=== PATIENT | female | born 1960 | race Caucasian/White ===

== ENCOUNTER 2023-04-24 13:20 | Inpatient (IN) | payer MEDICAID ==
[~2023-04-24] VITALS: Ht 170.2 cm; Wt 100.2 kg
[2023-04-24] MEDS ORDERED: ONDANSETRON HCL/PF - ER 4 MG/2 ML VIAL IV ONE (14:00)
[2023-04-24] MEDS ORDERED: KETOROLAC TROMETHAMINE INJ 30 MG/ML VIAL IV ONE (14:00)
[2023-04-24] MEDS ORDERED: IV NS 0.9% 1,000 ML IV ONE (14:00)
[2023-04-24 14:10] LABS: BASOPHILS # (AUTO) 0.1 K/uL (0.0-0.2); BASOPHILS % (AUTO) 1.3 % (0.0-2.0); EOSINOPHILS # (AUTO) 0.3 K/uL (0.0-0.7); EOSINOPHILS % (AUTO) 5.5 % (0.0-6.0); HEMATOCRIT 44 % (33-45); HEMOGLOBIN 14.2 g/dL (11.5-14.8); LYMPHOCYTES # (AUTO) 1.8 K/uL (0.8-4.8); MEAN CORPUSCULAR HEMOGLOBIN 29 PG (26.0-33.0); MEAN CORPUSCULAR HGB CONC 33 g/dl (31.0-36.0); MEAN CORPUSCULAR VOLUME 88 fL (82-100); MONOCYTES # (AUTO) 0.6 K/uL (0.1-1.30); MONOCYTES % (AUTO) 11.8 % (2.0-12.0); NEUTROPHILS # (AUTO) 2.3 K/uL (1.8-8.9); NEUTROPHILS % (AUTO) 45.4 % (43.0-81.0); PLATELET COUNT (AUTO) 211 K/uL (150-450); RED BLOOD CELL COUNT(AUTO) 4.97 MIL/uL (4.0-5.2); RED CELL DISTRIBUTION WIDTH 15.9 % (11.5-15.0)
[2023-04-24 14:24] LABS: ALBUMIN 3.1 g/dL (3.4-5.0); BILIRUBIN,DIRECT 0.1 mg/dL (0.0-0.2); BILIRUBIN,TOTAL 0.3 mg/dL (0.2-1.0); CREATININE 1.8 mg/dL (0.6-1.3); POTASSIUM 4.6 mmol/L (3.5-5.1); TOTAL PROTEIN, SERUM 7.2 g/dL (6.4-8.2)
[2023-04-24] MEDS ORDERED: KETOROLAC TROMETHAMINE 15 MG/ML VIAL ONE (14:29)
[2023-04-24] MEDS ORDERED: ONDANSETRON HCL/PF 4 MG/2 ML VIAL ONE (14:29)
[2023-04-24] MEDS ORDERED: MORPHINE SULFATE INJ 2 MG/ML DISP.SYRIN IV ONE (15:00)
[2023-04-24 15:04] LABS: APPEARANCE,URINE CLEAR (CLEAR); BILIRUBIN,URINE NEGATIVE (NEGATIVE); BLOOD, URINE NEGATIVE Ery/uL (NEGATIVE); COLOR,URINE YELLOW (YELLOW); KETONES,URINE TRACE mg/dL (NEGATIVE); LEUKOCYTE ESTERASE ,URINE NEGATIVE (NEGATIVE); NITRITE, URINE NEGATIVE (NEGATIVE); PROTEIN,URINE NEGATIVE (NEGATIVE); UGLUCOSE 3+ mg/dL (NEGATIVE); UROBILINOGEN,URINE 0.2 EU/dL (0.2)
[2023-04-24 15:15] LABS: RBC,URINE 0-2 /HPF (0-2); WBC,URINE 0-2 /HPF (0-3)
[2023-04-24 15:16] LABS: ADD URINE CULTURE NO; BACTERIA,URINE None seen /HPF (None Seen)
[2023-04-24] MEDS ORDERED: MORPHINE SULFATE INJ 4 MG/ML DISP.SYRIN ONE (15:25)
[2023-04-24] MEDS ORDERED: IV 1/2NS 1000 ML 1,000 ML IV PRN (16:30)
[2023-04-24] MEDS ORDERED: TAMSULOSIN 0.4 MG CAP.SR.24H PO SCH (16:30)
[2023-04-24] MEDS ORDERED: TAMSULOSIN 0.4 MG CAP.SR.24H PO ONE ×2 (16:30→19:30)
[2023-04-24] MEDS ORDERED: ZOLPIDEM TARTRATE 5 MG TABLET PO PRN (16:30)
[2023-04-24] MEDS ORDERED: HYDROCODONE/APAP 5/325MG TABLET PO PRN (16:30)
[2023-04-24] MEDS ORDERED: ACETAMINOPHEN 325 MG TABLET PO PRN (16:30)
[2023-04-24] MEDS ORDERED: DEXTROSE 50%-WATER 50 ML DISP.SYRIN IV PRN (16:30)
[2023-04-24] MEDS ORDERED: HYDROMORPHONE 1 MG/1 ML DISP.SYRIN IV ONE (17:30)
[2023-04-24] MEDS ORDERED: HYDROMORPHONE 1 MG/1 ML DISP.SYRIN ONE (17:51)
[2023-04-24] MEDS: BLOOD SUGAR DIAGNOSTIC 1 EACH STRIP IN SCH ×2 (19:38→21:38)
[2023-04-24 20:00] VITALS: BP 132/86; TEMP 98.2; O2SAT 93
[2023-04-24] MEDS: MORPHINE SULFATE INJ 2 MG/ML DISP.SYRIN IV PRN (20:47)
[2023-04-24 21:00] VITALS: O2SAT 98
[2023-04-24] MEDS: INSULIN REGULAR, HUMAN 100 UNIT/ML 3 ML VIAL SQ PRN (21:38)
[2023-04-24] MEDS: HYDROCODONE/APAP 10/325MG TABLET PO PRN (23:17)
[2023-04-25] MEDS: MORPHINE SULFATE INJ 2 MG/ML DISP.SYRIN IV PRN ×3 (06:15→16:38)
[2023-04-25] MEDS: INSULIN REGULAR, HUMAN 100 UNIT/ML 3 ML VIAL SQ PRN ×3 (06:35→21:42)
[2023-04-25] MEDS: BLOOD SUGAR DIAGNOSTIC 1 EACH STRIP IN SCH ×4 (06:35→21:41)
[2023-04-25 06:48] LABS: BASOPHILS # (AUTO) 0.1 K/uL (0.0-0.2); BASOPHILS % (AUTO) 1.1 % (0.0-2.0); EOSINOPHILS # (AUTO) 0.4 K/uL (0.0-0.7); EOSINOPHILS % (AUTO) 7.4 % (0.0-6.0); HEMATOCRIT 40 % (33-45); LYMPHOCYTES # (AUTO) 1.7 K/uL (0.8-4.8); LYMPHOCYTES % (AUTO) 35.4 % (20.0-44.0); MEAN CORPUSCULAR HEMOGLOBIN 29 PG (26.0-33.0); MEAN CORPUSCULAR HGB CONC 32 g/dl (31.0-36.0); MEAN CORPUSCULAR VOLUME 88 fL (82-100); MONOCYTES # (AUTO) 0.5 K/uL (0.1-1.30); MONOCYTES % (AUTO) 10.5 % (2.0-12.0); NEUTROPHILS # (AUTO) 2.2 K/uL (1.8-8.9); NEUTROPHILS % (AUTO) 45.6 % (43.0-81.0); PLATELET COUNT (AUTO) 188 K/uL (150-450); RED BLOOD CELL COUNT(AUTO) 4.58 MIL/uL (4.0-5.2); RED CELL DISTRIBUTION WIDTH 15.8 % (11.5-15.0); WHITE BLOOD COUNT (AUTO) 4.8 K/uL (4.3-11.0)
[2023-04-25 07:16] LABS: CALCIUM, SERUM 8.7 mg/dL (8.5-10.1); CREATININE 1.1 mg/dL (0.6-1.3); MAGNESIUM 2.1 mg/dL (1.8-2.4); PHOSPHORUS 3.8 mg/dL (2.5-4.9); POTASSIUM 4.4 mmol/L (3.5-5.1)
[2023-04-25 08:00] VITALS: BP 100/69; TEMP 98.2; O2SAT 97
[2023-04-25] MEDS: HYDROCODONE/APAP 10/325MG TABLET PO PRN ×2 (08:35→20:12)
[2023-04-25] MEDS: IV 1/2NS 1000 ML 1,000 ML IV SCH ×2 (09:26→19:30)
[2023-04-25] MEDS: NEOMY SULF/BACITRAC ZN/POLY 15 GM TUBE TP SCH (10:15)
[2023-04-25] MEDS ORDERED: AMLO10TA4 PO (14:53)
[2023-04-25] MEDS ORDERED: SACU1TAB PO (14:53)
[2023-04-25] MEDS ORDERED: CLOP75TA15 PO (14:53)
[2023-04-25] MEDS ORDERED: TAMS-12 PO (14:53)
[2023-04-25] MEDS ORDERED: EMPA10TA PO (14:53)
[2023-04-25] MEDS ORDERED: HYDR-4303 PO (14:53)
[2023-04-25] MEDS ORDERED: SPIR25TA PO (14:53)
[2023-04-25] MEDS ORDERED: GABA300C PO (14:53)
[2023-04-25] MEDS ORDERED: ATOR80TA PO (14:53)
[2023-04-25] MEDS ORDERED: ONDA4TAB5 PO (14:53)
[2023-04-25] MEDS ORDERED: DIPH25TA23 PO (14:53)
[2023-04-25] MEDS ORDERED: CEFP200T14 PO (14:53)
[2023-04-25] MEDS ORDERED: NITR0.4T48 SL (14:53)
[2023-04-25] MEDS ORDERED: HYDR-500 PO (14:53)
[2023-04-25 16:00] VITALS: BP 132/87; TEMP 99; O2SAT 97
[2023-04-25] MEDS: ENOXAPARIN SODIUM 40 MG/0.4 ML DISP.SYRIN SQ SCH (16:41)
[2023-04-25 20:00] VITALS: BP 143/96; TEMP 97.7; O2SAT 96
[2023-04-25 21:24] VITALS: BP 143/93; TEMP 97.7; O2SAT 96
[2023-04-25] MEDS: TAMSULOSIN 0.4 MG CAP.SR.24H PO SCH (21:36)
[2023-04-26] MEDS: IV 1/2NS 1000 ML 1,000 ML IV SCH ×2 (03:48→14:12)
[2023-04-26] MEDS: INSULIN REGULAR, HUMAN 100 UNIT/ML 3 ML VIAL SQ PRN ×4 (06:40→21:26)
[2023-04-26] MEDS: BLOOD SUGAR DIAGNOSTIC 1 EACH STRIP IN SCH ×4 (06:40→21:26)
[2023-04-26 07:07] LABS: HEPATITIS B CORE AB, IgM Negative (Negative); HEPATITIS B CORE AB, TOTAL Negative (Negative); HEPATITIS B SURFACE AB Non Reactive (.); HEPATITIS Be AG Negative (Negative)
[2023-04-26 08:00] VITALS: BP 139/82; TEMP 97.9; O2SAT 97
[2023-04-26] MEDS: NEOMY SULF/BACITRAC ZN/POLY 15 GM TUBE TP SCH (08:37)
[2023-04-26] MEDS: MORPHINE SULFATE INJ 2 MG/ML DISP.SYRIN IV PRN ×3 (08:44→17:54)
[2023-04-26] MEDS ORDERED: HYDROCODONE/APAP 5/325MG TABLET PO PRN (12:00)
[2023-04-26] MEDS: SACUBITRIL/VALSARTAN 1 EACH TABLET PO SCH (16:39)
[2023-04-26] MEDS: ENOXAPARIN SODIUM 40 MG/0.4 ML DISP.SYRIN SQ SCH (16:46)
[2023-04-26] MEDS: HYDROCODONE/APAP 10/325MG TABLET PO PRN (16:50)
[2023-04-26 16:58] VITALS: BP 138/89; TEMP 98.4; O2SAT 99
[2023-04-26] MEDS: ONDANSETRON HCL/PF 4 MG/2 ML VIAL IVP PRN (18:01)
[2023-04-26 20:00] VITALS: BP 121/72; TEMP 98.4; O2SAT 99
[2023-04-26] MEDS: TAMSULOSIN 0.4 MG CAP.SR.24H PO SCH (21:18)
[2023-04-26] MEDS ORDERED: GABAPENTIN 300 MG CAPSULE PO SCH (22:00)
[2023-04-26] MEDS ORDERED: ATORVASTATIN 40 MG TABLET PO SCH (22:00)
[2023-04-27] MEDS: IV 1/2NS 1000 ML 1,000 ML IV SCH ×2 (00:48→10:30)
[2023-04-27] MEDS: MORPHINE SULFATE INJ 2 MG/ML DISP.SYRIN IV PRN ×3 (03:34→16:14)
[2023-04-27] MEDS: BLOOD SUGAR DIAGNOSTIC 1 EACH STRIP IN SCH ×2 (06:55→12:19)
[2023-04-27] MEDS: INSULIN REGULAR, HUMAN 100 UNIT/ML 3 ML VIAL SQ PRN (06:57)
[2023-04-27 08:00] VITALS: BP 108/71; TEMP 97.7; O2SAT 96
[2023-04-27] MEDS: NEOMY SULF/BACITRAC ZN/POLY 15 GM TUBE TP SCH (08:44)
[2023-04-27] MEDS: SACUBITRIL/VALSARTAN 1 EACH TABLET PO SCH (08:44)
[2023-04-27 08:45] VITALS: BP 108/71
[2023-04-27] MEDS ORDERED: SPIRONOLACTONE 25 MG TABLET PO SCH (09:00)
[2023-04-27] MEDS ORDERED: CLOPIDOGREL BISULFATE 75 MG TABLET PO SCH (09:00)
[2023-04-27] MEDS ORDERED: AMLODIPINE BESYLATE 10 MG TABLET PO SCH (09:00)
[2023-04-27] MEDS ORDERED: TAMSULOSIN 0.4 MG CAP.SR.24H PO SCH (09:00)
[2023-04-27] MEDS ORDERED: HYDR-3972 PO (10:10)
[2023-04-27] MEDS ORDERED: PREG75CA PO (10:10)
[2023-04-27] MEDS ORDERED: PREGABALIN 25 MG CAPSULE PO SCH (10:30)
[2023-04-27] MEDS: ONDANSETRON HCL/PF 4 MG/2 ML VIAL IVP PRN (10:35)
[2023-04-27 13:07] LABS: HEPATITIS Be AB Negative (Negative)
[2023-04-27] MEDS: HYDROCODONE/APAP 10/325MG TABLET PO PRN (14:24)
[2023-04-27] MEDS ORDERED: HOME MED (JARDIANCE 10MG) PO SCH (21:00)
== END 2023-04-27 16:25 | disposition home or self-care (01) | DRG 465 ==
LOC: ER 13:24 → MED 17:31
PROVIDERS: ATTEND Nurse Practitioner Acute Care
DX: N20.2 Calculus of kidney with calculus of ureter (principal); N17.0 Acute kidney failure with tubular necrosis; I50.9 Heart failure, unspecified; I13.0 Hypertensive heart and chronic kidney disease with heart failure and stage 1 through stage 4 chronic kidney disease, or unspecified chronic kidney disease; E11.22 Type 2 diabetes mellitus with diabetic chronic kidney disease; N18.9 Chronic kidney disease, unspecified; K57.90 Diverticulosis of intestine, part unspecified, without perforation or abscess without bleeding; M48.54XA Collapsed vertebra, not elsewhere classified, thoracic region, initial encounter for fracture; I69.354 Hemiplegia and hemiparesis following cerebral infarction affecting left non-dominant side; Z87.442 Personal history of urinary calculi; Z88.0 Allergy status to penicillin; Z90.710 Acquired absence of both cervix and uterus; E78.5 Hyperlipidemia, unspecified; Z98.890 Other specified postprocedural states; Z98.891 History of uterine scar from previous surgery; N13.9 Obstructive and reflux uropathy, unspecified; G89.4 Chronic pain syndrome
CPT/HCPCS: 36415; 80048-TC; 80076-TC; 81001; 82962-TC; 83605-TC; 83690-TC; 83735-TC; 84100-TC; 85025-TC; 86704; 86705; 86706; 86707; 86803; 87340; 87350; 97110-TC; 97116-TC; 97530-TC; A4223; G0378; J1170; J1650; J1815; J1885; J2270; J2405; J3490

== ENCOUNTER → 2023-09-18 | Emergency (ER) | payer MEDICAID ==
[~2023-09-18] VITALS: Ht 165.1 cm; Wt 87.5 kg
[~2023-09-18] MED LIST: AMLO10TA4 PO; ASPIRIN 325 MG TABLET ONE; ASPIRIN 325 MG TABLET PO ONE; ATOR80TA PO; CLOP75TA15 PO; DIPH25TA23 PO; EMPA10TA PO; GABA300C PO; HYDR-3972 PO; HYDR-4303 PO; HYDR-500 PO; HYDROCODONE/APAP 5/325MG TABLET ONE; HYDROCODONE/APAP 5/325MG TABLET PO ONE; MORPHINE SULFATE INJ 2 MG/ML DISP.SYRIN IV ONE; MORPHINE SULFATE INJ 2 MG/ML DISP.SYRIN ONE; NITR0.4T48 SL; ONDA4TAB5 PO; ONDANSETRON HCL/PF 4 MG/2 ML VIAL IV ONE; ONDANSETRON HCL/PF 4 MG/2 ML VIAL ONE; PREG75CA PO; SACU1TAB PO; SPIR25TA PO; TAMS-12 PO
[2023-09-18 21:49] LABS: BASOPHILS # (AUTO) 0.1 K/uL (0.0-0.2); BASOPHILS % (AUTO) 1.2 % (0.0-2.0); EOSINOPHILS # (AUTO) 0.5 K/uL (0.0-0.7); EOSINOPHILS % (AUTO) 8.5 % (0.0-6.0); HEMATOCRIT 45 % (33-45); HEMOGLOBIN 14.6 g/dL (11.5-14.8); LYMPHOCYTES # (AUTO) 2.2 K/uL (0.8-4.8); LYMPHOCYTES % (AUTO) 35.8 % (20.0-44.0); MEAN CORPUSCULAR HEMOGLOBIN 28 PG (26.0-33.0); MEAN CORPUSCULAR HGB CONC 33 g/dl (31.0-36.0); MEAN CORPUSCULAR VOLUME 86 fL (82-100); MONOCYTES # (AUTO) 0.6 K/uL (0.1-1.30); MONOCYTES % (AUTO) 9.1 % (2.0-12.0); NEUTROPHILS # (AUTO) 2.9 K/uL (1.8-8.9); NEUTROPHILS % (AUTO) 45.4 % (43.0-81.0); PLATELET COUNT (AUTO) 201 K/uL (150-450); RED BLOOD CELL COUNT(AUTO) 5.15 MIL/uL (4.0-5.2); RED CELL DISTRIBUTION WIDTH 14.7 % (11.5-15.0); WHITE BLOOD COUNT (AUTO) 6.3 K/uL (4.3-11.0)
[2023-09-18 22:05] LABS: CALCIUM, SERUM 9.1 mg/dL (8.5-10.1); CARBON DIOXIDE 26 mmol/L (21-32); CHLORIDE 102 mmol/L (98-107); CREATININE 1.4 mg/dL (0.6-1.3); GLUCOSE 134 mg/dL (74-106); POTASSIUM 4.3 mmol/L (3.5-5.1); SODIUM SERUM 137 mmol/L (136-145); UREA NITROGEN, BLOOD 30 mg/dL (7-18)
[2023-09-18 22:10] LABS: ALANINE AMINOTRANSFERASE 30 U/L (12-78); ALBUMIN 3.5 g/dL (3.4-5.0); ALKALINE PHOSPHATASE 127 U/L (46-116); ASPARTATE AMINOTRANSFERASE 29 U/L (15-37); BILIRUBIN,DIRECT 0.1 mg/dL (0.0-0.2); BILIRUBIN,TOTAL 0.3 mg/dL (0.2-1.0); TOTAL PROTEIN, SERUM 8.3 g/dL (6.4-8.2)
[2023-09-18 22:47] LABS: LIPASE 31 U/L (16-77); NT-PRO BNP 766 pg/mL (0-125)
[2023-09-19 07:40] VITALS: BP 128/79; TEMP 98.2; O2SAT 98
== END | disposition short-term general hospital (02) ==
LOC: ER 20:38
DX: I11.0 Hypertensive heart disease with heart failure (principal); I50.9 Heart failure, unspecified; R79.89 Other specified abnormal findings of blood chemistry; E11.9 Type 2 diabetes mellitus without complications; K21.9 Gastro-esophageal reflux disease without esophagitis; Z88.0 Allergy status to penicillin; Z60.2 Problems related to living alone; Z79.899 Other long term (current) drug therapy
CPT/HCPCS: 99285; 96374; 71045; 96375; 93005; 85025; 80048; 83690; 80076; 85378; 36415; 84484; 83880; J2405; J2270

== ENCOUNTER 2023-11-28 16:35 | Emergency (ER) | payer MEDICAID ==
[~2023-11-28] VITALS: Ht 165.1 cm; Wt 88.0 kg
[~2023-11-28 16:35] MED LIST changes: -ASPIRIN 325 MG TABLET ONE; -ASPIRIN 325 MG TABLET PO ONE; -HYDROCODONE/APAP 5/325MG TABLET ONE; -HYDROCODONE/APAP 5/325MG TABLET PO ONE; -MORPHINE SULFATE INJ 2 MG/ML DISP.SYRIN IV ONE; -MORPHINE SULFATE INJ 2 MG/ML DISP.SYRIN ONE; -ONDANSETRON HCL/PF 4 MG/2 ML VIAL IV ONE; -ONDANSETRON HCL/PF 4 MG/2 ML VIAL ONE
[2023-11-28 16:50] VITALS: TEMP 98.5
[2023-11-28] MEDS ORDERED: ONDANSETRON HCL/PF 4 MG/2 ML VIAL IVP ONE (17:30)
[2023-11-28] MEDS ORDERED: MORPHINE SULFATE INJ 2 MG/ML DISP.SYRIN IV ONE (17:30)
[2023-11-28 17:43] LABS: APPEARANCE,URINE Clear (CLEAR); BILIRUBIN,URINE Negative (NEGATIVE); BLOOD, URINE Negative Ery/uL (NEGATIVE); COLOR,URINE YELLOW (YELLOW); KETONES,URINE Negative (NEGATIVE); LEUKOCYTE ESTERASE ,URINE Negative (NEGATIVE); NITRITE, URINE Negative (NEGATIVE); PH,URINE 5.5 (5.0-8.0); PROTEIN,URINE Negative (NEGATIVE); UGLUCOSE Negative (NEGATIVE); UROBILINOGEN,URINE 0.2 EU/dL (0.2)
[2023-11-28 18:21] LABS: BASOPHILS # (AUTO) 0.1 K/uL (0.0-0.2); BASOPHILS % (AUTO) 1.1 % (0.0-2.0); EOSINOPHILS # (AUTO) 0.5 K/uL (0.0-0.7); EOSINOPHILS % (AUTO) 8.1 % (0.0-6.0); HEMATOCRIT 40 % (33-45); HEMOGLOBIN 13.1 g/dL (11.5-14.8); LYMPHOCYTES # (AUTO) 2.2 K/uL (0.8-4.8); LYMPHOCYTES % (AUTO) 34.2 % (20.0-44.0); MEAN CORPUSCULAR HEMOGLOBIN 28 PG (26.0-33.0); MEAN CORPUSCULAR HGB CONC 32 g/dl (31.0-36.0); MEAN CORPUSCULAR VOLUME 88 fL (82-100); MONOCYTES # (AUTO) 0.6 K/uL (0.1-1.30); MONOCYTES % (AUTO) 8.8 % (2.0-12.0); NEUTROPHILS # (AUTO) 3.1 K/uL (1.8-8.9); NEUTROPHILS % (AUTO) 47.8 % (43.0-81.0); PLATELET COUNT (AUTO) 213 K/uL (150-450); RED CELL DISTRIBUTION WIDTH 15.5 % (11.5-15.0); WHITE BLOOD COUNT (AUTO) 6.4 K/uL (4.3-11.0)
[2023-11-28] MEDS ORDERED: ONDANSETRON 4 MG TAB.RAPDIS ONE (18:28)
[2023-11-28] MEDS ORDERED: MORPHINE SULFATE INJ 2 MG/ML DISP.SYRIN ONE (18:28)
[2023-11-28] MEDS: MORPHINE SULFATE INJ 2 MG/ML DISP.SYRIN IM ONE (18:31)
[2023-11-28] MEDS: ONDANSETRON 4 MG TAB.RAPDIS PO ONE (18:32)
[2023-11-28 18:42] LABS: CALCIUM, SERUM 9.1 mg/dL (8.5-10.1); CREATININE 0.9 mg/dL (0.6-1.3); POTASSIUM 4.1 mmol/L (3.5-5.1)
[2023-11-28 18:47] LABS: INR 0.98 (0.91-1.10); PARTIAL THROMBOPLASTIN TIME 25.6 SEC (24.3-34.3); PROTHROMBIN TIME 10.4 SECS (9.2-11.1)
[2023-11-28 18:49] LABS: ALBUMIN 2.9 g/dL (3.4-5.0); BILIRUBIN,DIRECT 0.1 mg/dL (0.0-0.2); BILIRUBIN,TOTAL 0.4 mg/dL (0.2-1.0); TOTAL PROTEIN, SERUM 6.9 g/dL (6.4-8.2)
[2023-11-28] MEDS ORDERED: ONDA4TAB5 PO (19:12)
[2023-11-28] MEDS ORDERED: ACET-2605 PO (19:12)
[2023-11-28 19:25] VITALS: BP 145/98; O2SAT 99
== END 2023-11-28 19:26 | disposition home or self-care (01) ==
LOC: ER 17:01
DX: R10.31 Right lower quadrant pain (principal); R11.0 Nausea; I10 Essential (primary) hypertension; E11.9 Type 2 diabetes mellitus without complications; K21.9 Gastro-esophageal reflux disease without esophagitis; Z88.0 Allergy status to penicillin; R39.15 Urgency of urination; R35.0 Frequency of micturition
CPT/HCPCS: 99285; 74176; 96372; 85025; 80048; 83690; 80076; 81003; 36415; 85730; Q0162; J2270

== ENCOUNTER 2024-03-11 19:00 | Inpatient (IN) | payer MEDICAID ==
[~2024-03-11] VITALS: Ht 165.1 cm; Wt 116.6 kg
[~2024-03-11 19:00] MED LIST changes: +ACET-2605 PO
[2024-03-11 19:18] LABS: BASOPHILS # (AUTO) 0.1 K/uL (0.0-0.2); EOSINOPHILS # (AUTO) 0.4 K/uL (0.0-0.7); EOSINOPHILS % (AUTO) 6.1 % (0.0-6.0); HEMATOCRIT 42 % (33-45); HEMOGLOBIN 14.1 g/dL (11.5-14.8); LYMPHOCYTES # (AUTO) 2.2 K/uL (0.8-4.8); MEAN CORPUSCULAR HEMOGLOBIN 29 PG (26.0-33.0); MEAN CORPUSCULAR HGB CONC 34 g/dl (31.0-36.0); MEAN CORPUSCULAR VOLUME 86 fL (82-100); MONOCYTES # (AUTO) 0.6 K/uL (0.1-1.30); MONOCYTES % (AUTO) 8.5 % (2.0-12.0); NEUTROPHILS % (AUTO) 54.4 % (43.0-81.0); PLATELET COUNT (AUTO) 227 K/uL (150-450); RED BLOOD CELL COUNT(AUTO) 4.88 MIL/uL (4.0-5.2); RED CELL DISTRIBUTION WIDTH 14.8 % (11.5-15.0); WHITE BLOOD COUNT (AUTO) 7.4 K/uL (4.3-11.0)
[2024-03-11] MEDS ORDERED: hydrALAZINE HCL IV 20 MG VIAL ONE (19:22)
[2024-03-11] MEDS: hydrALAZINE HCL IV 20 MG VIAL IV ONE (19:24)
[2024-03-11 19:29] LABS: CARBON DIOXIDE 27 mmol/L (21-32); CHLORIDE 105 mmol/L (98-107); CREATININE 0.8 mg/dL (0.6-1.3); GLUCOSE 126 mg/dL (74-106); POTASSIUM 3.7 mmol/L (3.5-5.1); SODIUM SERUM 142 mmol/L (136-145); UREA NITROGEN, BLOOD 17 mg/dL (7-18)
[2024-03-11 19:37] LABS: LACTIC ACID 1.4 mmol/L (0.4-2.0)
[2024-03-11 19:43] LABS: ALANINE AMINOTRANSFERASE 23 U/L (12-78); ALBUMIN 2.9 g/dL (3.4-5.0); ALKALINE PHOSPHATASE 126 U/L (46-116); ASPARTATE AMINOTRANSFERASE 19 U/L (15-37); BILIRUBIN,DIRECT 0.1 mg/dL (0.0-0.2); BILIRUBIN,TOTAL 0.3 mg/dL (0.2-1.0); NT-PRO BNP 2241 pg/mL (0-125); TOTAL PROTEIN, SERUM 7.6 g/dL (6.4-8.2)
[2024-03-11] MEDS: ACETAMINOPHEN ES 500 MG TABLET PO ONE (21:30)
[2024-03-11] MEDS ORDERED: ACETAMINOPHEN ES 500 MG TABLET ONE (21:33)
[2024-03-11] MEDS: ACETAMINOPHEN ES 500 MG TABLET PO PRN (21:41)
[2024-03-11 22:08] LABS: APPEARANCE,URINE SLIGHTLY CLOUDY (CLEAR); BILIRUBIN,URINE NEGATIVE (NEGATIVE); BLOOD, URINE NEGATIVE Ery/uL (NEGATIVE); COLOR,URINE YELLOW (YELLOW); KETONES,URINE TRACE mg/dL (NEGATIVE); LEUKOCYTE ESTERASE ,URINE NEGATIVE (NEGATIVE); NITRITE, URINE POSITIVE (NEGATIVE); PROTEIN,URINE NEGATIVE (NEGATIVE); UGLUCOSE NEGATIVE (NEGATIVE); UROBILINOGEN,URINE 0.2 EU/dL (0.2)
[2024-03-11 22:17] LABS: ADD URINE CULTURE YES; BACTERIA,URINE 3+ /HPF (None Seen); RBC,URINE 0-2 /HPF (0-2)
[2024-03-11 22:20] VITALS: BP 151/93; TEMP 97.9; O2SAT 96
[2024-03-11] MEDS ORDERED: MAGNESIUM HYDROXIDE 30 ML UDC PO PRN (22:30)
[2024-03-11] MEDS ORDERED: MAG HYDROX/AL HYDROX/SIMETH 30 ML UDC PO PRN (22:30)
[2024-03-11] MEDS ORDERED: Z GUARD REMEDY 4 OZ OINT TP PRN (22:30)
[2024-03-11] MEDS ORDERED: LEVOFLOXACIN 500 MG /D5W 100ML 100 ML IV ONE (23:16)
[2024-03-11] MEDS: ENOXAPARIN SODIUM 40 MG/0.4 ML DISP.SYRIN SQ SCH (23:30)
[2024-03-11] MEDS: LEVOFLOXACIN 250 MG /D5W 50 ML 250 MG in PREMIX 1 EA IV SCH (23:32)
[2024-03-12] VITALS: BP 159/106; TEMP 97.8; O2SAT 98
[2024-03-12] MEDS: IBUPROFEN 400 MG TABLET PO PRN (00:17)
[2024-03-12] MEDS: NITROGLYCERIN 0.4 MG/TAB BOTTLE SL PRN (03:59)
[2024-03-12 04:00] VITALS: BP 150/80; TEMP 98.1; O2SAT 96
[2024-03-12] MEDS: MORPHINE SULFATE INJ 2 MG/ML DISP.SYRIN IV ONE (05:38)
[2024-03-12 07:23] LABS: BASOPHILS # (AUTO) 0.1 K/uL (0.0-0.2); EOSINOPHILS # (AUTO) 0.5 K/uL (0.0-0.7); EOSINOPHILS % (AUTO) 7.7 % (0.0-6.0); HEMATOCRIT 38 % (33-45); HEMOGLOBIN 12.8 g/dL (11.5-14.8); LYMPHOCYTES # (AUTO) 2.1 K/uL (0.8-4.8); LYMPHOCYTES % (AUTO) 35.3 % (20.0-44.0); MEAN CORPUSCULAR HEMOGLOBIN 29 PG (26.0-33.0); MEAN CORPUSCULAR HGB CONC 34 g/dl (31.0-36.0); MEAN CORPUSCULAR VOLUME 85 fL (82-100); MONOCYTES # (AUTO) 0.6 K/uL (0.1-1.30); MONOCYTES % (AUTO) 9.9 % (2.0-12.0); NEUTROPHILS # (AUTO) 2.8 K/uL (1.8-8.9); NEUTROPHILS % (AUTO) 46.1 % (43.0-81.0); PLATELET COUNT (AUTO) 219 K/uL (150-450); RED BLOOD CELL COUNT(AUTO) 4.43 MIL/uL (4.0-5.2); RED CELL DISTRIBUTION WIDTH 14.8 % (11.5-15.0)
[2024-03-12] MEDS: PANTOPRAZOLE 40 MG TABLET.DR PO SCH (07:39)
[2024-03-12 07:50] VITALS: O2SAT 97
[2024-03-12 08:00] VITALS: BP 154/97; TEMP 97.7; O2SAT 98
[2024-03-12 08:25] LABS: ALBUMIN 2.6 g/dL (3.4-5.0); BILIRUBIN,DIRECT 0.1 mg/dL (0.0-0.2); BILIRUBIN,TOTAL 0.5 mg/dL (0.2-1.0); CALCIUM, SERUM 8.8 mg/dL (8.5-10.1); CREATININE 0.8 mg/dL (0.6-1.3); MAGNESIUM 2.2 mg/dL (1.8-2.4); PHOSPHORUS 3.5 mg/dL (2.5-4.9); POTASSIUM 3.7 mmol/L (3.5-5.1); TOTAL PROTEIN, SERUM 6.9 g/dL (6.4-8.2)
[2024-03-12 08:37] LABS: THYROID STIMULATING HORMONE 1.48 uIU/mL (0.358-3.74)
[2024-03-12] MEDS: TAMSULOSIN 0.4 MG CAP.SR.24H PO SCH (08:43)
[2024-03-12] MEDS: CLOPIDOGREL BISULFATE 75 MG TABLET PO SCH (08:43)
[2024-03-12] MEDS: SPIRONOLACTONE 25 MG TABLET PO SCH (08:43)
[2024-03-12] MEDS: SACUBITRIL/VALSARTAN 1 EACH TABLET PO SCH (08:44)
[2024-03-12] MEDS: AMLODIPINE BESYLATE 10 MG TABLET PO SCH (08:44)
[2024-03-12] MEDS ORDERED: Medication Not On Formulary EA (Empagliflozin (Jardiance) 10 MG) PO SCH (09:00)
[2024-03-12] MEDS: CARVEDILOL 3.125 MG TABLET PO SCH (10:51)
[2024-03-12] MEDS: ASPIRIN 81 MG TAB.CHEW PO SCH (10:52)
[2024-03-12 11:07] LABS: THYROID STIMULATING HORMONE 1.57 uIU/mL (0.358-3.74)
[2024-03-12] MEDS ORDERED: ASPI-1420 PO (11:31)
[2024-03-12] MEDS ORDERED: DULO30CA52 PO (11:31)
[2024-03-12] MEDS ORDERED: CHOL200059 PO (11:31)
[2024-03-12] MEDS ORDERED: BACL10TA PO (11:31)
[2024-03-12] MEDS ORDERED: METO25TA4 PO (11:31)
[2024-03-12] MEDS ORDERED: PANT40TA49 PO (11:31)
[2024-03-12] MEDS ORDERED: FURO40TA5 PO (11:31)
[2024-03-12] MEDS ORDERED: GABA100C PO (11:31)
[2024-03-12] MEDS ORDERED: ISOS30TA86 PO (11:31)
[2024-03-12] MEDS: ONDANSETRON HCL/PF 4 MG/2 ML VIAL IVP PRN (12:31)
[2024-03-12] MEDS: GABAPENTIN 100 MG CAPSULE PO SCH (13:15)
[2024-03-12 13:55] LABS: C-REACTIVE PROTEIN 0.21 mg/dL (0.0-0.30)
[2024-03-12] MEDS: MECLIZINE HCL 12.5 MG TABLET PO PRN (14:59)
[2024-03-12 16:00] VITALS: BP 116/83; TEMP 98.2; O2SAT 94
[2024-03-12] MEDS: (Empagliflozin (Jardiance) 10 MG) PO SCH (18:45)
[2024-03-12 20:00] VITALS: BP 131/85; TEMP 98.4; O2SAT 95
[2024-03-12] MEDS: ATORVASTATIN 40 MG TABLET PO SCH (21:51)
[2024-03-12] MEDS ORDERED: GABAPENTIN 300 MG CAPSULE PO SCH (22:00)
[2024-03-13] VITALS: BP 135/98; TEMP 97.3; O2SAT 96
[2024-03-13 04:00] VITALS: BP 117/75; TEMP 97.9; O2SAT 97
[2024-03-13 06:37] LABS: BASOPHILS # (AUTO) 0.1 K/uL (0.0-0.2); EOSINOPHILS # (AUTO) 0.4 K/uL (0.0-0.7); EOSINOPHILS % (AUTO) 7.2 % (0.0-6.0); HEMATOCRIT 41 % (33-45); HEMOGLOBIN 13.4 g/dL (11.5-14.8); LYMPHOCYTES # (AUTO) 1.5 K/uL (0.8-4.8); LYMPHOCYTES % (AUTO) 27.3 % (20.0-44.0); MEAN CORPUSCULAR HEMOGLOBIN 28 PG (26.0-33.0); MEAN CORPUSCULAR HGB CONC 32 g/dl (31.0-36.0); MEAN CORPUSCULAR VOLUME 87 fL (82-100); MONOCYTES # (AUTO) 0.6 K/uL (0.1-1.30); NEUTROPHILS # (AUTO) 3.1 K/uL (1.8-8.9); NEUTROPHILS % (AUTO) 54.5 % (43.0-81.0); PLATELET COUNT (AUTO) 221 K/uL (150-450); RED BLOOD CELL COUNT(AUTO) 4.75 MIL/uL (4.0-5.2); RED CELL DISTRIBUTION WIDTH 14.8 % (11.5-15.0); WHITE BLOOD COUNT (AUTO) 5.6 K/uL (4.3-11.0)
[2024-03-13] MEDS: ACETAMINOPHEN 325 MG TABLET PO PRN (06:40)
[2024-03-13 07:01] LABS: CALCIUM, SERUM 8.9 mg/dL (8.5-10.1); CREATININE 0.8 mg/dL (0.6-1.3); MAGNESIUM 2.3 mg/dL (1.8-2.4); PHOSPHORUS 3.6 mg/dL (2.5-4.9); POTASSIUM 3.6 mmol/L (3.5-5.1)
[2024-03-13] MEDS: DULOXETINE HCL 30 MG CAPSULE.DR PO SCH (08:35)
[2024-03-13] MEDS: ISOSORBIDE MONONITRATE (30MG) 30 MG TAB.SR.24H PO SCH (08:36)
[2024-03-13] MEDS ORDERED: METOPROLOL SUCCINATE 25 MG TAB.SR.24H PO SCH (09:00)
[2024-03-13] MEDS: METOPROLOL SUCCINATE 25 MG TAB.SR.24H PO SCH (09:51)
[2024-03-13 10:08] LABS: FOLIC ACID 8.9 ng/mL (>3.0)
[2024-03-13 11:30] VITALS: BP 109/71; TEMP 98.2; O2SAT 96
[2024-03-13] MEDS ORDERED: IOHEXOL-350 100 ML VIAL IV ONE (13:39)
[2024-03-13] MEDS ORDERED: CT SWABBABLE VALVE TRANS SET 1 EA INFUS.SET MC ONE (13:39)
[2024-03-13] MEDS ORDERED: NITROGLYCERIN 0.4 MG/TAB BOTTLE ONE (13:39)
[2024-03-13] MEDS ORDERED: METOPROLOL TARTRATE INJ 5 MG/5 ML AMPUL ONE (13:39)
[2024-03-13] MEDS ORDERED: IV NS 0.9% 250 ML IV ONE (13:40)
[2024-03-13] MEDS: METOPROLOL TARTRATE INJ 5 MG/5 ML AMPUL IVP PRN (14:05)
[2024-03-13] MEDS: NITROGLYCERIN 0.4 MG/TAB BOTTLE SL ONE (14:18)
[2024-03-13 16:00] VITALS: BP 116/82; TEMP 97.7; O2SAT 96
[2024-03-13 20:00] VITALS: BP 98/81; TEMP 98.6; O2SAT 98
[2024-03-13 20:12] VITALS: BP 98/81; TEMP 98.6; O2SAT 98
[2024-03-13] MEDS: ZOLPIDEM TARTRATE 5 MG TABLET PO PRN (22:06)
[2024-03-14] VITALS (9 sets, daily range): BP systolic 118–142; BP diastolic 66–87; TEMP 97.7–98.2; O2SAT 94–98
[2024-03-14] MEDS: CYANOCOBALAMIN 1,000 MCG/ML VIAL IM SCH (09:47)
[2024-03-14] MEDS: diphenhydrAMINE HCL 50 MG/ML VIAL IV ONE (11:51)
[2024-03-14] MEDS: METOCLOPRAMIDE HCL 10 MG/2 ML VIAL IV ONE (11:51)
[2024-03-14] MEDS: MECLIZINE HCL 25 MG TABLET PO PRN (13:00)
[2024-03-14] MEDS ORDERED: Magnesium 1GM/D5W 100ML PREMIX 100 ML IV SCH (14:00)
[2024-03-14] MEDS: Magnesium 1GM/D5W 100ML PREMIX 100 ML IV ONE (15:06)
[2024-03-14] MEDS: VALPROATE 250 MG in IV D5W 100 ML IV ONE (15:14)
[2024-03-14] MEDS: LEVOFLOXACIN (250MG) 250 MG TABLET PO SCH (18:29)
[2024-03-14] MEDS: HYDROCODONE/APAP 5/325MG TABLET PO PRN (20:29)
[2024-03-14] MEDS: EZETIMIBE 10 MG TABLET PO SCH (21:17)
[2024-03-15] VITALS (8 sets, daily range): BP systolic 108–140; BP diastolic 61–82; TEMP 97.5–98.4; O2SAT 96–98
[2024-03-16] VITALS (7 sets, daily range): BP systolic 113–158; BP diastolic 68–85; TEMP 97.6–99.3; O2SAT 93–98
[2024-03-16] MEDS: NITROFURANTOIN/MONOHYDRATE MACROCRYSTALS 100 MG CAPSULE PO SCH (12:11)
[2024-03-17] VITALS: BP 140/84; TEMP 98.4; O2SAT 97
[2024-03-17 04:00] VITALS: BP 139/90; TEMP 98.2; O2SAT 96
[2024-03-17 08:00] VITALS: BP 165/92; TEMP 98.2; O2SAT 97
[2024-03-17 09:19] VITALS: O2SAT 96
[2024-03-17] MEDS ORDERED: MECLIZINE HCL 25 MG TABLET PO PRN (13:00)
[2024-03-17 16:00] VITALS: BP 121/73; TEMP 98.1; O2SAT 95
[2024-03-17] MEDS: MECLIZINE HCL 25 MG TABLET PO PRN (18:00)
[2024-03-17 20:59] VITALS: BP 130/74; TEMP 97.5; O2SAT 96
[2024-03-18 08:19] VITALS: O2SAT 96
[2024-03-18] MEDS: LORAZEPAM 0.5 MG TABLET PO PRN (08:26)
[2024-03-18 09:00] VITALS: BP 140/74; TEMP 98.1; O2SAT 98
[2024-03-18] MEDS ORDERED: MECL-159 PO (14:53)
[2024-03-18] MEDS ORDERED: NITR100C15 PO (14:53)
[2024-03-18] MEDS ORDERED: CLOP75TA15 PO (14:56)
[2024-03-18 16:00] VITALS: BP 128/90; TEMP 98.6; O2SAT 97
== END 2024-03-18 16:46 | DRG 111 ==
LOC: ER 19:03 → TELE 21:27 → MED 03-17 10:23
PROVIDERS: ADMIT Nurse Practitioner Family; ATTEND Nurse Practitioner Family
DX: H81.10 Benign paroxysmal vertigo, unspecified ear (principal); I21.A1 Myocardial infarction type 2; E44.0 Moderate protein-calorie malnutrition; I69.354 Hemiplegia and hemiparesis following cerebral infarction affecting left non-dominant side; E11.40 Type 2 diabetes mellitus with diabetic neuropathy, unspecified; I11.0 Hypertensive heart disease with heart failure; N39.0 Urinary tract infection, site not specified; I50.9 Heart failure, unspecified; R29.6 Repeated falls; H40.9 Unspecified glaucoma; Z68.41 Body mass index [BMI] 40.0-44.9, adult; E78.5 Hyperlipidemia, unspecified; F41.9 Anxiety disorder, unspecified; I25.10 Atherosclerotic heart disease of native coronary artery without angina pectoris; K21.9 Gastro-esophageal reflux disease without esophagitis; K80.20 Calculus of gallbladder without cholecystitis without obstruction; K76.9 Liver disease, unspecified; Z88.0 Allergy status to penicillin; Z79.84 Long term (current) use of oral hypoglycemic drugs; Z79.899 Other long term (current) drug therapy; M48.54XA Collapsed vertebra, not elsewhere classified, thoracic region, initial encounter for fracture; M21.371 Foot drop, right foot; M51.37 Other intervertebral disc degeneration, lumbosacral region; N20.0 Calculus of kidney; Z79.02 Long term (current) use of antithrombotics/antiplatelets; Z87.442 Personal history of urinary calculi; Z98.891 History of uterine scar from previous surgery; R26.89 Other abnormalities of gait and mobility; F01.54 Vascular dementia, unspecified severity, with anxiety
CPT/HCPCS: 36415; 70450-TC; 70551-TC; 71045-TC; 72131-TC; 75574; 80048-TC; 80061-TC; 80076-TC; 81001; 82550-TC; 82607-TC; 82962-TC; 83605-TC; 83735-TC; 83880; 83921; 84100-TC; 84439-TC; 84443-TC; 84484-TC; 85025-TC; 85652-TC; 86140-TC; 87040-TC; 87086-TC; 93307-TC; 93880-TC; 94762-TC; 94799-TC; 97112-TC; 97116-TC; 97164; 97530-TC; A4216; A4223; G0378; J0360; J1200; J1650; J1956; J2270; J2405; J2765; J3420; J3475; J3490; J7050; J7060; J8597; Q9967

== ENCOUNTER 2024-04-10 20:52 | Emergency (ER) | payer MEDICAID ==
[~2024-04-10] VITALS: Ht 165.1 cm; Wt 110.7 kg
[~2024-04-10 20:52] MED LIST changes: -ACET-2605 PO; -AMLO10TA4 PO; +ASPI-1420 PO; +CHOL200059 PO; -DIPH25TA23 PO; +DULO30CA52 PO; -EMPA10TA PO; +FURO40TA5 PO; +GABA100C PO; -GABA300C PO; -HYDR-3972 PO; -HYDR-500 PO; +ISOS30TA86 PO; +MECL-159 PO; +NITR100C15 PO; -ONDA4TAB5 PO; +PANT40TA49 PO; -PREG75CA PO
[2024-04-10] MEDS ORDERED: KETOROLAC TROMETHAMINE 15 MG/ML VIAL ONE (21:30)
[2024-04-10] MEDS ORDERED: ONDANSETRON HCL/PF 4 MG/2 ML VIAL ONE (21:30)
[2024-04-10] MEDS ORDERED: MORPHINE SULFATE INJ 4 MG/ML DISP.SYRIN ONE (21:31)
[2024-04-10] MEDS: MORPHINE SULFATE INJ 2 MG/ML DISP.SYRIN IV ONE (21:31)
[2024-04-10] MEDS: ONDANSETRON HCL/PF 4 MG/2 ML VIAL IV ONE (21:32)
[2024-04-10] MEDS: KETOROLAC TROMETHAMINE 15 MG/ML VIAL IV ONE (21:32)
[2024-04-10] MEDS ORDERED: IBUP-1955 PO (23:35)
[2024-04-10] MEDS ORDERED: HYDR-4303 PO (23:35)
[2024-04-10] MEDS ORDERED: CYCL5TAB PO (23:35)
[2024-04-10] MEDS ORDERED: LIDO30AD10 TP (23:35)
[2024-04-10] MEDS ORDERED: LIDOCAINE 5% (PATCH) 1 EA PATCH TP ONE (23:55)
[2024-04-10] MEDS: LIDOCAINE 5% (PATCH) 1 EA PATCH TP STA (23:59)
[2024-04-11 00:12] VITALS: BP 156/89; TEMP 98.2; O2SAT 98
== END 2024-04-11 00:12 | disposition home or self-care (01) ==
LOC: ER 21:15
DX: M54.50 Low back pain, unspecified (principal); I11.0 Hypertensive heart disease with heart failure; I50.9 Heart failure, unspecified; E78.5 Hyperlipidemia, unspecified; K21.9 Gastro-esophageal reflux disease without esophagitis; E11.9 Type 2 diabetes mellitus without complications; Z86.73 Personal history of transient ischemic attack (TIA), and cerebral infarction without residual deficits; Z79.82 Long term (current) use of aspirin; Z79.899 Other long term (current) drug therapy; Z60.2 Problems related to living alone; Z88.0 Allergy status to penicillin; W01.0XXA Fall on same level from slipping, tripping and stumbling without subsequent striking against object, initial encounter; Y93.89 Activity, other specified; Y92.89 Other specified places as the place of occurrence of the external cause; Y99.8 Other external cause status
CPT/HCPCS: 99285; 74176; 96374; 96375; J2270; J2405; J1885

== ENCOUNTER 2024-05-17 19:49 | Inpatient (IN) | payer MEDICAID ==
[~2024-05-17] VITALS: Ht 165.1 cm; Wt 108.9 kg
[~2024-05-17 19:49] MED LIST changes: +CYCL5TAB PO; +IBUP-1955 PO; +LIDO30AD10 TP
[2024-05-17] MEDS ORDERED: ONDANSETRON HCL/PF 4 MG/2 ML VIAL ONE (22:53)
[2024-05-17] MEDS ORDERED: MORPHINE SULFATE INJ 2 MG/ML DISP.SYRIN ONE (22:53)
[2024-05-17] MEDS: MORPHINE SULFATE INJ 2 MG/ML DISP.SYRIN IV ONE (23:00)
[2024-05-17] MEDS: ONDANSETRON HCL/PF - ER 4 MG/2 ML VIAL IV ONE (23:00)
[2024-05-17 23:15] LABS: BASOPHILS # (AUTO) 0.1 K/uL (0.0-0.2); BASOPHILS % (AUTO) 0.7 % (0.0-2.0); EOSINOPHILS # (AUTO) 0.3 K/uL (0.0-0.7); EOSINOPHILS % (AUTO) 3.4 % (0.0-6.0); HEMATOCRIT 39 % (33-45); HEMOGLOBIN 12.8 g/dL (11.5-14.8); LYMPHOCYTES # (AUTO) 1.3 K/uL (0.8-4.8); LYMPHOCYTES % (AUTO) 16.9 % (20.0-44.0); MEAN CORPUSCULAR HEMOGLOBIN 29 PG (26.0-33.0); MEAN CORPUSCULAR HGB CONC 33 g/dl (31.0-36.0); MEAN CORPUSCULAR VOLUME 88 fL (82-100); MONOCYTES # (AUTO) 0.7 K/uL (0.1-1.30); MONOCYTES % (AUTO) 9.3 % (2.0-12.0); NEUTROPHILS # (AUTO) 5.3 K/uL (1.8-8.9); NEUTROPHILS % (AUTO) 69.7 % (43.0-81.0); PLATELET COUNT (AUTO) 161 K/uL (150-450); RED BLOOD CELL COUNT(AUTO) 4.48 MIL/uL (4.0-5.2); RED CELL DISTRIBUTION WIDTH 14.9 % (11.5-15.0); WHITE BLOOD COUNT (AUTO) 7.7 K/uL (4.3-11.0)
[2024-05-17 23:20] LABS: CALCIUM, SERUM 9.2 mg/dL (8.5-10.1); CREATININE 1.3 mg/dL (0.6-1.3); POTASSIUM 4.1 mmol/L (3.5-5.1)
[2024-05-17 23:34] LABS: ALBUMIN 3.2 g/dL (3.4-5.0); BILIRUBIN,TOTAL 0.3 mg/dL (0.2-1.0); TOTAL PROTEIN, SERUM 7.3 g/dL (6.4-8.2)
[2024-05-18 03:50] VITALS: BP 115/83; TEMP 97.5; O2SAT 97
[2024-05-18] MEDS ORDERED: MAGNESIUM HYDROXIDE 30 ML UDC PO PRN (06:00)
[2024-05-18] MEDS ORDERED: Z GUARD REMEDY 4 OZ OINT TP PRN (06:00)
[2024-05-18] MEDS ORDERED: ACETAMINOPHEN 325 MG TABLET PO PRN (06:00)
[2024-05-18] MEDS ORDERED: MAG HYDROX/AL HYDROX/SIMETH 30 ML UDC PO PRN (06:00)
[2024-05-18 07:37] LABS: BASOPHILS # (AUTO) 0.1 K/uL (0.0-0.2); BASOPHILS % (AUTO) 0.9 % (0.0-2.0); EOSINOPHILS # (AUTO) 0.4 K/uL (0.0-0.7); EOSINOPHILS % (AUTO) 5.8 % (0.0-6.0); HEMATOCRIT 37 % (33-45); HEMOGLOBIN 12.2 g/dL (11.5-14.8); LYMPHOCYTES # (AUTO) 1.8 K/uL (0.8-4.8); LYMPHOCYTES % (AUTO) 28.9 % (20.0-44.0); MEAN CORPUSCULAR HEMOGLOBIN 28 PG (26.0-33.0); MEAN CORPUSCULAR HGB CONC 33 g/dl (31.0-36.0); MEAN CORPUSCULAR VOLUME 87 fL (82-100); MONOCYTES # (AUTO) 0.5 K/uL (0.1-1.30); MONOCYTES % (AUTO) 8.4 % (2.0-12.0); NEUTROPHILS # (AUTO) 3.4 K/uL (1.8-8.9); PLATELET COUNT (AUTO) 161 K/uL (150-450); RED BLOOD CELL COUNT(AUTO) 4.29 MIL/uL (4.0-5.2); RED CELL DISTRIBUTION WIDTH 14.7 % (11.5-15.0); WHITE BLOOD COUNT (AUTO) 6.2 K/uL (4.3-11.0)
[2024-05-18 08:00] VITALS: BP_SYST 141; BP_SYST 144; BP_DIAS 63; BP_DIAS 90; TEMP 97.7; O2SAT 97; O2SAT 98
[2024-05-18 08:02] LABS: ALBUMIN 3.1 g/dL (3.4-5.0); BILIRUBIN,DIRECT 0.1 mg/dL (0.0-0.2); BILIRUBIN,TOTAL 0.4 mg/dL (0.2-1.0); CALCIUM, SERUM 9.4 mg/dL (8.5-10.1); CREATININE 1.2 mg/dL (0.6-1.3); MAGNESIUM 2.4 mg/dL (1.8-2.4); PHOSPHORUS 3.9 mg/dL (2.5-4.9); TOTAL PROTEIN, SERUM 7.2 g/dL (6.4-8.2)
[2024-05-18 08:13] LABS: THYROID STIMULATING HORMONE 2.96 uIU/mL (0.358-3.74)
[2024-05-18] MEDS ORDERED: LIDOCAINE 5% (PATCH) 1 EA PATCH TP PRN (09:00)
[2024-05-18] MEDS ORDERED: MECLIZINE HCL 25 MG TABLET PO PRN (09:00)
[2024-05-18] MEDS: SACUBITRIL/VALSARTAN 24/26MG TABLET PO SCH (10:00)
[2024-05-18] MEDS: GABAPENTIN 100 MG CAPSULE PO SCH (10:00)
[2024-05-18] MEDS: DULOXETINE HCL 30 MG CAPSULE.DR PO SCH (10:00)
[2024-05-18] MEDS: CLOPIDOGREL BISULFATE 75 MG TABLET PO SCH (10:00)
[2024-05-18] MEDS: PANTOPRAZOLE 40 MG TABLET.DR PO SCH (10:00)
[2024-05-18] MEDS: TAMSULOSIN 0.4 MG CAP.SR.24H PO SCH (10:01)
[2024-05-18] MEDS: ISOSORBIDE MONONITRATE (30MG) 30 MG TAB.SR.24H PO SCH (10:01)
[2024-05-18] MEDS: SPIRONOLACTONE 25 MG TABLET PO SCH (10:01)
[2024-05-18] MEDS: ASPIRIN EC 81 MG TABLET.DR PO SCH (10:02)
[2024-05-18 12:00] VITALS: BP 114/73; TEMP 98.1; O2SAT 95
[2024-05-18] MEDS: HYDROCODONE/APAP 5/325MG TABLET PO PRN (14:53)
[2024-05-18] MEDS: METHOCARBAMOL (750MG) 750 MG TABLET PO SCH (17:49)
[2024-05-18] MEDS: IV NS 0.9% 1,000 ML IV PRN (17:54)
[2024-05-18 20:00] VITALS: BP 105/60; TEMP 98.1; O2SAT 96
[2024-05-18] MEDS: ATORVASTATIN 10 MG TABLET PO SCH (21:19)
[2024-05-19] VITALS: BP 117/74; TEMP 98.6; O2SAT 96
[2024-05-19 04:00] VITALS: BP 110/67; TEMP 97.9; O2SAT 96
[2024-05-19 06:20] LABS: BASOPHILS % (AUTO) 1.1 % (0.0-2.0); EOSINOPHILS # (AUTO) 0.4 K/uL (0.0-0.7); EOSINOPHILS % (AUTO) 9.2 % (0.0-6.0); HEMATOCRIT 37 % (33-45); HEMOGLOBIN 11.9 g/dL (11.5-14.8); LYMPHOCYTES # (AUTO) 1.5 K/uL (0.8-4.8); LYMPHOCYTES % (AUTO) 36.5 % (20.0-44.0); MEAN CORPUSCULAR HEMOGLOBIN 29 PG (26.0-33.0); MEAN CORPUSCULAR HGB CONC 33 g/dl (31.0-36.0); MEAN CORPUSCULAR VOLUME 88 fL (82-100); MONOCYTES # (AUTO) 0.4 K/uL (0.1-1.30); MONOCYTES % (AUTO) 10.1 % (2.0-12.0); NEUTROPHILS # (AUTO) 1.7 K/uL (1.8-8.9); NEUTROPHILS % (AUTO) 43.1 % (43.0-81.0); PLATELET COUNT (AUTO) 152 K/uL (150-450); RED BLOOD CELL COUNT(AUTO) 4.18 MIL/uL (4.0-5.2); RED CELL DISTRIBUTION WIDTH 14.7 % (11.5-15.0)
[2024-05-19 06:41] LABS: CALCIUM, SERUM 9.1 mg/dL (8.5-10.1); MAGNESIUM 2.3 mg/dL (1.8-2.4); POTASSIUM 4.1 mmol/L (3.5-5.1)
[2024-05-19 07:00] VITALS: BP 133/80; TEMP 97.7; O2SAT 96
[2024-05-19 11:30] VITALS: BP 101/81; TEMP 97.7; O2SAT 93
[2024-05-19 16:00] VITALS: BP 122/71; TEMP 97.7; O2SAT 98
[2024-05-19 21:45] VITALS: BP 139/76; TEMP 97.9; O2SAT 94
[2024-05-20 06:00] VITALS: BP_SYST 146; BP_SYST 153; BP_SYST 154; BP_DIAS 69; BP_DIAS 71; BP_DIAS 75; O2SAT 98
[2024-05-20 08:00] VITALS: BP 137/81; TEMP 98.2; O2SAT 96
[2024-05-20] MEDS: ONDANSETRON HCL/PF 4 MG/2 ML VIAL IV PRN (09:28)
[2024-05-20] MEDS ORDERED: IV NS 0.9% 250 ML IV ONE (15:50)
[2024-05-20] MEDS ORDERED: IOHEXOL-300 100 ML VIAL IV ONE (15:50)
[2024-05-20 16:00] VITALS: BP 123/75; TEMP 97.5; O2SAT 98
[2024-05-20 20:00] VITALS: BP 129/95; TEMP 97.5; TEMP 98.1; O2SAT 95
[2024-05-21 07:00] VITALS: BP 129/57; TEMP 98.2; O2SAT 97
[2024-05-21 08:27] VITALS: BP 129/57
== END 2024-05-21 17:15 | disposition home health service (06) | DRG 58 ==
LOC: ER 19:59 → TELE 05-18 03:29 → MED 05-19 11:04
PROVIDERS: ADMIT Nurse Practitioner Family; ATTEND Nurse Practitioner Family
DX: R26.89 Other abnormalities of gait and mobility (principal); I21.A1 Myocardial infarction type 2; N17.9 Acute kidney failure, unspecified; I13.0 Hypertensive heart and chronic kidney disease with heart failure and stage 1 through stage 4 chronic kidney disease, or unspecified chronic kidney disease; I50.9 Heart failure, unspecified; E11.22 Type 2 diabetes mellitus with diabetic chronic kidney disease; M48.54XA Collapsed vertebra, not elsewhere classified, thoracic region, initial encounter for fracture; E66.9 Obesity, unspecified; W18.30XA Fall on same level, unspecified, initial encounter; R79.89 Other specified abnormal findings of blood chemistry; I69.354 Hemiplegia and hemiparesis following cerebral infarction affecting left non-dominant side; H40.9 Unspecified glaucoma; E78.5 Hyperlipidemia, unspecified; I25.2 Old myocardial infarction; Z87.442 Personal history of urinary calculi; Z79.899 Other long term (current) drug therapy; Z88.0 Allergy status to penicillin; Z68.39 Body mass index [BMI] 39.0-39.9, adult; Z71.3 Dietary counseling and surveillance; N18.9 Chronic kidney disease, unspecified; R55 Syncope and collapse; Z90.710 Acquired absence of both cervix and uterus; Y92.009 Unspecified place in unspecified non-institutional (private) residence as the place of occurrence of the external cause; I50.22 Chronic systolic (congestive) heart failure; N20.0 Calculus of kidney
CPT/HCPCS: 36415; 70450-TC; 71045-TC; 72125-TC; 72128-TC; 72131-TC; 73502; 73564-TC; 80048-TC; 80053-TC; 80076-TC; 83735-TC; 83880; 84100-TC; 84443-TC; 84484-TC; 85025-TC; 93307-TC; 97110-TC; 97116-TC; 97530-TC; A4223; G0378; J2270; J2405; J7030; J7050; Q9967

== ENCOUNTER 2024-06-04 11:29 | Inpatient (IN) | payer MEDICAID ==
[~2024-06-04] VITALS: Ht 154.9 cm; Wt 101.6 kg
[2024-06-04] MEDS ORDERED: MORPHINE SULFATE INJ 2 MG/ML DISP.SYRIN ONE (11:59)
[2024-06-04] MEDS: MORPHINE SULFATE INJ 2 MG/ML DISP.SYRIN IV ONE (12:00)
[2024-06-04 12:35] LABS: BASOPHILS % (AUTO) 0.2 % (0.0-2.0); EOSINOPHILS # (AUTO) 0.4 K/uL (0.0-0.7); EOSINOPHILS % (AUTO) 6.8 % (0.0-6.0); HEMATOCRIT 40 % (33-45); HEMOGLOBIN 13.3 g/dL (11.5-14.8); LYMPHOCYTES # (AUTO) 1.5 K/uL (0.8-4.8); LYMPHOCYTES % (AUTO) 28.2 % (20.0-44.0); MEAN CORPUSCULAR HEMOGLOBIN 29 PG (26.0-33.0); MEAN CORPUSCULAR HGB CONC 34 g/dl (31.0-36.0); MEAN CORPUSCULAR VOLUME 87 fL (82-100); MONOCYTES # (AUTO) 0.5 K/uL (0.1-1.30); MONOCYTES % (AUTO) 9.2 % (2.0-12.0); NEUTROPHILS % (AUTO) 55.6 % (43.0-81.0); PLATELET COUNT (AUTO) 190 K/uL (150-450); RED BLOOD CELL COUNT(AUTO) 4.58 MIL/uL (4.0-5.2); RED CELL DISTRIBUTION WIDTH 14.4 % (11.5-15.0); WHITE BLOOD COUNT (AUTO) 5.4 K/uL (4.3-11.0)
[2024-06-04 12:50] LABS: CALCIUM, SERUM 9.2 mg/dL (8.5-10.1); CARBON DIOXIDE 26 mmol/L (21-32); CHLORIDE 104 mmol/L (98-107); CREATININE 0.9 mg/dL (0.6-1.3); GLUCOSE 98 mg/dL (74-106); SODIUM SERUM 139 mmol/L (136-145); UREA NITROGEN, BLOOD 16 mg/dL (7-18)
[2024-06-04] MEDS ORDERED: IOHEXOL-350 100 ML VIAL IV ONE (14:02)
[2024-06-04] MEDS ORDERED: IV NS 0.9% 250 ML IV ONE (14:02)
[2024-06-04] MEDS ORDERED: CT SWABBABLE VALVE TRANS SET 1 EA INFUS.SET MC ONE (14:02)
[2024-06-04] MEDS ORDERED: METO10TA3 PO (14:52)
[2024-06-04] MEDS ORDERED: HYDR-4076 PO (14:52)
[2024-06-04] MEDS ORDERED: FAMO20TA8 PO (14:52)
[2024-06-04] MEDS ORDERED: FURO20TA4 PO (14:52)
[2024-06-04] MEDS ORDERED: BACL5TAB PO (14:52)
[2024-06-04 16:00] VITALS: BP 167/91; TEMP 98.2; O2SAT 98
[2024-06-04] MEDS ORDERED: Z GUARD REMEDY 4 OZ OINT TP PRN (18:00)
[2024-06-04] MEDS ORDERED: METOCLOPRAMIDE HCL 10 MG TABLET PO PRN (18:00)
[2024-06-04] MEDS ORDERED: ONDANSETRON HCL/PF 4 MG/2 ML VIAL IVP PRN (18:00)
[2024-06-04] MEDS ORDERED: ACETAMINOPHEN 325 MG TABLET PO PRN (18:00)
[2024-06-04] MEDS ORDERED: MAGNESIUM HYDROXIDE 30 ML UDC PO PRN (18:00)
[2024-06-04] MEDS ORDERED: BACLOFEN (10 MG) 10 MG TABLET PO PRN (18:00)
[2024-06-04] MEDS ORDERED: NITROGLYCERIN 0.4 MG/TAB BOTTLE BC PRN (18:00)
[2024-06-04 20:00] VITALS: BP 158/86; TEMP 98.2; O2SAT 96
[2024-06-04] MEDS: ATORVASTATIN 40 MG TABLET PO SCH (22:10)
[2024-06-04] MEDS: ENOXAPARIN SODIUM 40 MG/0.4 ML DISP.SYRIN SQ SCH (22:13)
[2024-06-04] MEDS: NITROGLYCERIN 0.4 MG/TAB BOTTLE SL PRN (22:51)
[2024-06-05] VITALS: BP 139/86; TEMP 98.6; O2SAT 96
[2024-06-05 04:00] VITALS: BP 149/95; TEMP 97; O2SAT 97
[2024-06-05 07:38] LABS: CALCIUM, SERUM 9.5 mg/dL (8.5-10.1); CREATININE 0.9 mg/dL (0.6-1.3); MAGNESIUM 1.9 mg/dL (1.8-2.4); PHOSPHORUS 4.1 mg/dL (2.5-4.9)
[2024-06-05 07:44] LABS: BASOPHILS % (AUTO) 0.9 % (0.0-2.0); EOSINOPHILS # (AUTO) 0.4 K/uL (0.0-0.7); EOSINOPHILS % (AUTO) 7.9 % (0.0-6.0); HEMATOCRIT 36 % (33-45); HEMOGLOBIN 12.1 g/dL (11.5-14.8); LYMPHOCYTES # (AUTO) 1.6 K/uL (0.8-4.8); LYMPHOCYTES % (AUTO) 29.7 % (20.0-44.0); MEAN CORPUSCULAR HEMOGLOBIN 29 PG (26.0-33.0); MEAN CORPUSCULAR HGB CONC 34 g/dl (31.0-36.0); MEAN CORPUSCULAR VOLUME 85 fL (82-100); MONOCYTES # (AUTO) 0.5 K/uL (0.1-1.30); MONOCYTES % (AUTO) 9.3 % (2.0-12.0); NEUTROPHILS # (AUTO) 2.7 K/uL (1.8-8.9); NEUTROPHILS % (AUTO) 52.2 % (43.0-81.0); PLATELET COUNT (AUTO) 165 K/uL (150-450); RED CELL DISTRIBUTION WIDTH 14.5 % (11.5-15.0); WHITE BLOOD COUNT (AUTO) 5.3 K/uL (4.3-11.0)
[2024-06-05 08:00] VITALS: BP 120/85; TEMP 98.1; O2SAT 96
[2024-06-05] MEDS: hydrALAZINE HCL 25 MG TABLET PO SCH (08:12)
[2024-06-05] MEDS: ASPIRIN EC 81 MG TABLET.DR PO SCH (08:12)
[2024-06-05] MEDS: FUROSEMIDE 20 MG TABLET PO SCH (08:13)
[2024-06-05] MEDS: TAMSULOSIN 0.4 MG CAP.SR.24H PO SCH (08:13)
[2024-06-05] MEDS: FAMOTIDINE (20 MG) 20 MG TABLET PO SCH (08:13)
[2024-06-05] MEDS: PANTOPRAZOLE 40 MG TABLET.DR PO SCH (08:13)
[2024-06-05] MEDS: SACUBITRIL/VALSARTAN 24/26MG TABLET PO SCH (08:13)
[2024-06-05] MEDS: ISOSORBIDE MONONITRATE (30MG) 30 MG TAB.SR.24H PO SCH (08:13)
[2024-06-05] MEDS: IBUPROFEN 400 MG TABLET PO PRN (10:18)
[2024-06-05 12:00] VITALS: BP 123/85; TEMP 97.9; O2SAT 96
[2024-06-05 16:00] VITALS: BP 116/86; TEMP 97.9; O2SAT 96
[2024-06-05 20:00] VITALS: BP 125/90; TEMP 98.1; O2SAT 97
[2024-06-05] MEDS: MAG HYDROX/AL HYDROX/SIMETH 30 ML UDC PO PRN (21:05)
[2024-06-06] VITALS: BP 125/94; TEMP 97.7; O2SAT 98
[2024-06-06 04:00] VITALS: BP 110/79; TEMP 97.5; O2SAT 95
[2024-06-06 06:45] LABS: INR 0.97 (0.91-1.10); PARTIAL THROMBOPLASTIN TIME 22.6 SEC (24.3-34.3); PROTHROMBIN TIME 10.3 SECS (9.2-11.1)
[2024-06-06] MEDS ORDERED: IV NS 0.9% 500 ML IV ONE (07:35)
[2024-06-06] MEDS ORDERED: IV SET PRIMARY PUMP SET 1 EA INFUS.SET MC ONE (07:36)
[2024-06-06 08:00] VITALS: BP 134/89; TEMP 97.9; O2SAT 95
[2024-06-06] MEDS ORDERED: IODIXANOL 150 ML IV ONE (08:47)
[2024-06-06] MEDS ORDERED: NITROGLYCERIN IN 5 % DEXTROSE 250 ML IV ONE (08:48)
[2024-06-06] MEDS ORDERED: LIDOCAINE HCL/MPF 1% 30 ML VIAL IJ ONE (08:48)
[2024-06-06] MEDS ORDERED: MIDAZOLAM HCL 2 MG/2ML VIAL ONE (09:33)
[2024-06-06] MEDS ORDERED: FENTANYL PF 100MCG/2ML AMPUL ONE (09:33)
[2024-06-06 12:00] VITALS: BP 94/47; TEMP 97.9; O2SAT 100
[2024-06-06] MEDS: MORPHINE SULFATE INJ 2 MG/ML DISP.SYRIN IV PRN (13:03)
[2024-06-06 16:00] VITALS: BP 95/54; TEMP 97.2; O2SAT 100
[2024-06-06 17:06] VITALS: BP 95/54
== END 2024-06-06 19:43 | disposition home health service (06) | DRG 192 ==
LOC: ER 11:31 → TELE1 15:16
PROVIDERS: ADMIT Internal Medicine; ATTEND Internal Medicine
PROC: 4A023N7 Measurement of Cardiac Sampling and Pressure, Left Heart, Percutaneous Approach (ICD-10-PCS; principal; 2024-06-06)
PROC: B211YZZ Fluoroscopy of Multiple Coronary Arteries using Other Contrast (ICD-10-PCS; 2024-06-06)
DX: M94.0 Chondrocostal junction syndrome [Tietze] (principal); I21.A1 Myocardial infarction type 2; E11.40 Type 2 diabetes mellitus with diabetic neuropathy, unspecified; I69.354 Hemiplegia and hemiparesis following cerebral infarction affecting left non-dominant side; I11.0 Hypertensive heart disease with heart failure; E78.5 Hyperlipidemia, unspecified; E66.01 Morbid (severe) obesity due to excess calories; F32.9 Major depressive disorder, single episode, unspecified; G89.29 Other chronic pain; I50.22 Chronic systolic (congestive) heart failure; Z87.442 Personal history of urinary calculi; Z88.0 Allergy status to penicillin; Z68.41 Body mass index [BMI] 40.0-44.9, adult
CPT/HCPCS: 36415; 71045-TC; 80048-TC; 83735-TC; 84100-TC; 84484-TC; 85025-TC; 85378-TC; 85610-TC; 85730-TC; 93307-TC; 97116-TC; 97530-TC; A4223; G0378; J1644; J1650; J2250; J2270; J3010; J3490; J7040; J7050; Q9967

== ENCOUNTER 2024-09-16 18:31 | Emergency (ER) | payer MEDICAID ==
[~2024-09-16] VITALS: Ht 165.1 cm; Wt 104.8 kg
[~2024-09-16 18:31] MED LIST changes: +BACL5TAB PO; -CHOL200059 PO; -CLOP75TA15 PO; -DULO30CA52 PO; +FAMO20TA8 PO; +FURO20TA4 PO; -FURO40TA5 PO; -GABA100C PO; +HYDR-4076 PO; -HYDR-4303 PO; -IBUP-1955 PO; -LIDO30AD10 TP; -MECL-159 PO; +METO10TA3 PO; -NITR100C15 PO; -SPIR25TA PO
[2024-09-16] MEDS ORDERED: HYDROCODONE/APAP 10/325MG TABLET ONE (18:56)
[2024-09-16] MEDS: HYDROCODONE/APAP 10/325MG TABLET PO ONE (18:59)
[2024-09-16] MEDS ORDERED: KETOROLAC TROMETHAMINE INJ 30 MG/ML VIAL ONE (19:31)
[2024-09-16] MEDS: KETOROLAC TROMETHAMINE INJ 30 MG/ML VIAL IM ONE (19:35)
[2024-09-16 19:40] VITALS: BP 152/99; TEMP 97.8; O2SAT 96
[2024-09-16] MEDS ORDERED: HYDR-3980 PO (21:58)
== END 2024-09-16 22:32 | disposition home or self-care (01) ==
LOC: ER 18:43
DX: M54.89 Other dorsalgia (principal); G89.29 Other chronic pain; I11.0 Hypertensive heart disease with heart failure; E11.9 Type 2 diabetes mellitus without complications; E66.01 Morbid (severe) obesity due to excess calories; E78.5 Hyperlipidemia, unspecified; I50.9 Heart failure, unspecified; K21.9 Gastro-esophageal reflux disease without esophagitis; M43.16 Spondylolisthesis, lumbar region; M43.17 Spondylolisthesis, lumbosacral region; M47.812 Spondylosis without myelopathy or radiculopathy, cervical region; M47.816 Spondylosis without myelopathy or radiculopathy, lumbar region; M51.360 Other intervertebral disc degeneration, lumbar region with discogenic back pain only; Z79.82 Long term (current) use of aspirin; Z79.899 Other long term (current) drug therapy; Z88.0 Allergy status to penicillin; Z60.2 Problems related to living alone
CPT/HCPCS: 99285; 72125; 96372; 72131; 72128; J1885